=== PATIENT | female | born 1945 | race Caucasian/White ===

== ENCOUNTER 2023-05-18 10:23 | Inpatient (IN) | payer BC, MEDICAID ==
[~2023-05-18] VITALS: Ht 154.9 cm; Wt 68.9 kg
[~2023-05-18 10:23] MED LIST: ASPI-1077 PO; CHOL200059 PO; Ferrous Sulfate PO; GLIP10TA21 PO; HYDR100T25 PO; LIP40 PO; LISI40TA13 PO; METF1000 PO; METO50TA16 PO; SITA50TA3 PO
[2023-05-18 10:34] VITALS: BP_SYST 168; PULSE 73; RESP 18; TEMP 98.3; O2SAT 95
[2023-05-18 11:15] LABS: BASOPHILS # (AUTO) 0.1 K/uL (0.0-0.2); BASOPHILS % (AUTO) 0.5 % (0.0-2.0); EOSINOPHILS # (AUTO) 0.1 K/uL (0.0-0.4); EOSINOPHILS % (AUTO) 0.5 % (0.0-4.0); HEMATOCRIT 26.4 % (36-48); LYMPHOCYTES # (AUTO) 0.9 K/uL (1.0-5.5); LYMPHOCYTES % (AUTO) 5.3 % (20.5-51.5); MEAN CORPUSCULAR HEMOGLOBIN 21 pg (27-31); MEAN CORPUSCULAR HGB CONC 30 % (32-36); MEAN CORPUSCULAR VOLUME 70 fL (79.0-98.0); MONOCYTES # (AUTO) 1.2 K/uL (0.0-1.0); MONOCYTES % (AUTO) 7.6 % (1.7-9.3); NEUTROPHILS # (AUTO) 13.9 K/uL (1.8-7.7); NEUTROPHILS % (AUTO) 86.1 % (40.0-70.0); PLATELET COUNT (AUTO) 501 K/uL (130-430); RED CELL DISTRIBUTION WIDTH 18.6 % (9.0-15.0); WHITE BLOOD COUNT (AUTO) 16.2 K/uL (4.8-10.8)
[2023-05-18 11:27] LABS: ANION GAP 8 (5-15); CALCIUM 9.6 mg/dL (8.4-11.0); CARBON DIOXIDE 25 mmol/L (23-29); CHLORIDE 99 mmol/L (98-107); CREATININE 0.65 mg/dL (0.55-1.30); GLUCOSE 163 mg/dL (74-106); POTASSIUM 3.9 mmol/L (3.5-5.1); SODIUM SERUM 132 mmol/L (136-145); UREA NITROGEN, BLOOD 12 mg/dL (8-21)
[2023-05-18 11:33] LABS: ALANINE AMINOTRANSFERASE 40 U/L (12-78); ALBUMIN 2.1 g/dL (3.4-4.8); ASPARTATE AMINOTRANSFERASE 60 U/L (10-37); BILIRUBIN,DIRECT 0.3 mg/dL (0.0-0.3); TOTAL BILIRUBIN 0.5 mg/dL (0.0-1.0); TOTAL PROTEIN, SERUM 6.9 g/dL (6.4-8.3)
[2023-05-18] MEDS: FUROSEMIDE 40 MG/4 ML VIAL IVP ONE (15:17)
[2023-05-18] MEDS ORDERED: cefTRIAXone 1 GM VIAL ONE (15:29)
[2023-05-18] MEDS: cefTRIAXone 1 GM in D5W 50 ML IV SCH (15:45)
[2023-05-18] MEDS ORDERED: cefTRIAXone 1 GM IVPB PREMIX 50 ML IV ONE (18:09)
[2023-05-18] MEDS: FUROSEMIDE 40 MG/4 ML VIAL IVP SCH (22:17)
[2023-05-19 05:27] LABS: BASOPHILS # (AUTO) 0.2 K/uL (0.0-0.2); BASOPHILS % (AUTO) 1.3 % (0.0-2.0); EOSINOPHILS # (AUTO) 0.2 K/uL (0.0-0.4); EOSINOPHILS % (AUTO) 1.3 % (0.0-4.0); HEMATOCRIT 24.6 % (36-48); HEMOGLOBIN 7.5 g/dL (12.0-16.0); LYMPHOCYTES # (AUTO) 1.3 K/uL (1.0-5.5); LYMPHOCYTES % (AUTO) 9.5 % (20.5-51.5); MEAN CORPUSCULAR HEMOGLOBIN 21 pg (27-31); MEAN CORPUSCULAR HGB CONC 31 % (32-36); MEAN CORPUSCULAR VOLUME 69 fL (79.0-98.0); MONOCYTES # (AUTO) 1.4 K/uL (0.0-1.0); MONOCYTES % (AUTO) 9.8 % (1.7-9.3); NEUTROPHILS % (AUTO) 78.1 % (40.0-70.0); PLATELET COUNT (AUTO) 434 K/uL (130-430); RED BLOOD CELL COUNT(AUTO) 3.55 MIL/uL (4.2-6.2); RED CELL DISTRIBUTION WIDTH 18.6 % (9.0-15.0); WHITE BLOOD COUNT (AUTO) 14.1 K/uL (4.8-10.8)
[2023-05-19 05:49] LABS: ANION GAP 9 (5-15); CALCIUM 9.3 mg/dL (8.4-11.0); CARBON DIOXIDE 27 mmol/L (23-29); CHLORIDE 97 mmol/L (98-107); CREATININE 0.67 mg/dL (0.55-1.30); GLUCOSE 192 mg/dL (74-106); POTASSIUM 3.4 mmol/L (3.5-5.1); SODIUM SERUM 133 mmol/L (136-145); UREA NITROGEN, BLOOD 13 mg/dL (8-21)
[2023-05-19 07:07] VITALS: BP_SYST 150; PULSE 74; RESP 18; TEMP 98.3
[2023-05-19 07:52] VITALS: O2SAT 94
[2023-05-19 08:00] VITALS: BP_SYST 153; PULSE 71; RESP 18; TEMP 97.9; O2SAT 97
[2023-05-19] MEDS: ASPIRIN 81 MG TAB.CHEW PO SCH (08:38)
[2023-05-19 11:31] VITALS: BP_SYST 154; PULSE 72; RESP 17; TEMP 97.6; O2SAT 97
[2023-05-19 16:14] VITALS: BP_SYST 150; PULSE 70; RESP 18; TEMP 97.8; O2SAT 96
[2023-05-19] MEDS: glipiZIDE XL 5 MG TAB ( GLUCOTROL XL) PO ONE (18:18)
[2023-05-19 20:00] VITALS: BP_SYST 140; PULSE 81; RESP 17; TEMP 97.7; O2SAT 97; O2SAT 98
[2023-05-19] MEDS: CEFTRIAXONE SOD 1 GM/ D5W 50 ML IV SCH (21:00)
[2023-05-19] MEDS: metFORMIN HCL 500 MG TABLET PO SCH (21:39)
[2023-05-20] VITALS: BP_SYST 153; PULSE 92; RESP 17; TEMP 99.4; O2SAT 96
[2023-05-20] MEDS: glipiZIDE XL 5 MG TAB ( GLUCOTROL XL) PO SCH (06:13)
[2023-05-20 14:22] LABS: THYROID STIMULATING HORMONE 0.97 uIu/mL (0.34-4.82)
[2023-05-20] MEDS: BUMEX 1 MG/4 ML VIAL IVP ONE (16:19)
[2023-05-20] MEDS: metOLazone 5 MG TABLET PO ONE (16:19)
[2023-05-20 19:45] VITALS: O2SAT 97
[2023-05-20 20:23] VITALS: BP_SYST 138; PULSE 74; RESP 16; TEMP 98.8; O2SAT 97
[2023-05-21 00:33] VITALS: BP_SYST 155; PULSE 77; RESP 16; TEMP 97.5; O2SAT 97
[2023-05-21 05:03] LABS: BASOPHILS # (AUTO) 0.1 K/uL (0.0-0.2); BASOPHILS % (AUTO) 0.3 % (0.0-2.0); EOSINOPHILS # (AUTO) 0.1 K/uL (0.0-0.4); EOSINOPHILS % (AUTO) 0.5 % (0.0-4.0); HEMATOCRIT 24.1 % (36-48); HEMOGLOBIN 7.6 g/dL (12.0-16.0); LYMPHOCYTES # (AUTO) 1.3 K/uL (1.0-5.5); LYMPHOCYTES % (AUTO) 6.9 % (20.5-51.5); MEAN CORPUSCULAR HEMOGLOBIN 22 pg (27-31); MEAN CORPUSCULAR HGB CONC 32 % (32-36); MEAN CORPUSCULAR VOLUME 69 fL (79.0-98.0); MONOCYTES # (AUTO) 2.2 K/uL (0.0-1.0); MONOCYTES % (AUTO) 11.7 % (1.7-9.3); NEUTROPHILS % (AUTO) 80.6 % (40.0-70.0); PLATELET COUNT (AUTO) 395 K/uL (130-430); RED BLOOD CELL COUNT(AUTO) 3.47 MIL/uL (4.2-6.2); WHITE BLOOD COUNT (AUTO) 18.6 K/uL (4.8-10.8)
[2023-05-21] MEDS: glipiZIDE XL 5 MG TAB ( GLUCOTROL XL) PO SCH (06:23)
[2023-05-21 07:02] LABS: ANION GAP 9 (5-15); CALCIUM 8.6 mg/dL (8.4-11.0); CARBON DIOXIDE 30 mmol/L (23-29); CHLORIDE 95 mmol/L (98-107); CREATININE 0.59 mg/dL (0.55-1.30); GLUCOSE 54 mg/dL (74-106); SODIUM SERUM 134 mmol/L (136-145); UREA NITROGEN, BLOOD 15 mg/dL (8-21)
[2023-05-21 07:15] LABS: POTASSIUM 2.6 mmol/L (3.5-5.1)
[2023-05-21 08:00] VITALS: BP_SYST 132; PULSE 72; RESP 16; TEMP 98.2; O2SAT 97
[2023-05-21] MEDS ORDERED: POTASSIUM CHLORIDE 40 MEQ in NS 250 ML IV ONE (08:15)
[2023-05-21 08:30] VITALS: O2SAT 97
[2023-05-21] MEDS: POTASSIUM CHLORIDE 20 MEQ TABLET.ER PO SCH (09:50)
[2023-05-21] MEDS: metOLazone 5 MG TABLET PO SCH (09:51)
[2023-05-21] MEDS: LOSARTAN POTASSIUM 25 MG TABLET PO ONE (09:52)
[2023-05-21] MEDS: POTASSIUM CHLORIDE 40 MEQ, LIDOCAINE JECT 2% PF 100 MG 75 MG in NS 250 ML IV ONE (10:05)
[2023-05-21 10:12] LABS: BILIRUBIN,DIRECT 0.3 mg/dL (0.0-0.3); TOTAL BILIRUBIN 0.5 mg/dL (0.0-1.0); TOTAL PROTEIN, SERUM 6.8 g/dL (6.4-8.3)
[2023-05-21 11:30] LABS: BILIRUBIN,URINE NEGATIVE (NEGATIVE); BLOOD, URINE NEGATIVE (NEGATIVE); CLARITY/URINE CLEAR (CLEAR); COLOR,URINE YELLOW (YELLOW); GLUCOSE,URINE NEGATIVE (NEGATIVE); KETONES,URINE NEGATIVE (NEGATIVE); LEUKOCYTE ESTERASE ,URINE 1+ (NEGATIVE); NITRITE, URINE NEGATIVE (NEGATIVE); PROTEIN URINE NEGATIVE (NEGATIVE); UROBILINOGEN,URINE 0.2 (0.2-1.0)
[2023-05-21 11:45] LABS: BACTERIA,URINE FEW /HPF (None Seen); MUCUS,URINE 1+ /LPF (None Seen); RBC,URINE 0-3 /HPF (0-3)
[2023-05-21] MEDS ORDERED: VANCOMYCIN HCL 750 MG in NS 250 ML IV SCH (12:00)
[2023-05-21 13:48] LABS: BASOPHILS # (AUTO) 0.1 K/uL (0.0-0.2); BASOPHILS % (AUTO) 0.4 % (0.0-2.0); EOSINOPHILS % (AUTO) 0.3 % (0.0-4.0); HEMATOCRIT 25.4 % (36-48); HEMOGLOBIN 8.1 g/dL (12.0-16.0); LYMPHOCYTES % (AUTO) 6.3 % (20.5-51.5); MEAN CORPUSCULAR HEMOGLOBIN 22 pg (27-31); MEAN CORPUSCULAR HGB CONC 32 % (32-36); MEAN CORPUSCULAR VOLUME 70 fL (79.0-98.0); MONOCYTES # (AUTO) 1.7 K/uL (0.0-1.0); MONOCYTES % (AUTO) 10.6 % (1.7-9.3); NEUTROPHILS # (AUTO) 13.1 K/uL (1.8-7.7); NEUTROPHILS % (AUTO) 82.4 % (40.0-70.0); PLATELET COUNT (AUTO) 416 K/uL (130-430); RED BLOOD CELL COUNT(AUTO) 3.66 MIL/uL (4.2-6.2); RED CELL DISTRIBUTION WIDTH 18.8 % (9.0-15.0); WHITE BLOOD COUNT (AUTO) 15.9 K/uL (4.8-10.8)
[2023-05-21] MEDS ORDERED: PIPERACILLIN/TAZO 4.5GM/DEX-IS 100 ML IV SCH (14:00)
[2023-05-21] MEDS: ceFAZolin SODIUM 2 GM in D5W 100 ML IV SCH (15:47)
[2023-05-21] MEDS: FLUCONAZOLE 200 mg/ NS 100 ML IV SCH (15:47)
[2023-05-21 19:00] VITALS: BP_SYST 170; PULSE 87; RESP 18; TEMP 98.7; O2SAT 98
[2023-05-21 20:18] VITALS: BP_SYST 170; PULSE 87; RESP 18; TEMP 98.7; O2SAT 99
[2023-05-21] MEDS: LOSARTAN POTASSIUM 25 MG TABLET PO SCH (20:48)
[2023-05-22] VITALS (7 sets, daily range): BP systolic 125–158; PULSE 81–98; RESP 16–18; TEMP 97.3–98.2; O2SAT 97–99
[2023-05-22 06:02] LABS: ANION GAP 6 (5-15); CALCIUM 9.2 mg/dL (8.4-11.0); CARBON DIOXIDE 33 mmol/L (23-29); CHLORIDE 96 mmol/L (98-107); CREATININE 0.53 mg/dL (0.55-1.30); POTASSIUM 3.2 mmol/L (3.5-5.1); SODIUM SERUM 135 mmol/L (136-145); UREA NITROGEN, BLOOD 18 mg/dL (8-21)
[2023-05-22 06:05] LABS: BASOPHILS % (AUTO) 0.2 % (0.0-2.0); EOSINOPHILS # (AUTO) 0.1 K/uL (0.0-0.4); EOSINOPHILS % (AUTO) 0.5 % (0.0-4.0); HEMATOCRIT 24.2 % (36-48); HEMOGLOBIN 7.6 g/dL (12.0-16.0); LYMPHOCYTES # (AUTO) 1.2 K/uL (1.0-5.5); LYMPHOCYTES % (AUTO) 7.7 % (20.5-51.5); MEAN CORPUSCULAR HEMOGLOBIN 22 pg (27-31); MEAN CORPUSCULAR HGB CONC 32 % (32-36); MEAN CORPUSCULAR VOLUME 69 fL (79.0-98.0); MONOCYTES # (AUTO) 1.7 K/uL (0.0-1.0); MONOCYTES % (AUTO) 10.9 % (1.7-9.3); NEUTROPHILS # (AUTO) 12.8 K/uL (1.8-7.7); NEUTROPHILS % (AUTO) 80.7 % (40.0-70.0); PLATELET COUNT (AUTO) 413 K/uL (130-430); RED BLOOD CELL COUNT(AUTO) 3.48 MIL/uL (4.2-6.2); RED CELL DISTRIBUTION WIDTH 19.3 % (9.0-15.0); WHITE BLOOD COUNT (AUTO) 15.8 K/uL (4.8-10.8)
[2023-05-22 06:13] LABS: GLUCOSE 48 mg/dL (74-106)
[2023-05-22 08:06] LABS: CREATININE, URINE 41.8 mg/dL (Not Estab.); MICROALBUMIN URINE RANDOM 48.1 ug/mL (Not Estab.)
[2023-05-22] MEDS: POTASSIUM CHLORIDE 20 MEQ/PKT PACKET PO ONE (12:59)
[2023-05-22] MEDS: FUROSEMIDE 40 MG TABLET PO SCH (18:21)
[2023-05-22] MEDS: SPIRONOLACTONE 25 MG TABLET (ALDACTONE) PO SCH (20:17)
[2023-05-23 01:26] VITALS: BP_SYST 140; PULSE 71; RESP 18; TEMP 98.4; O2SAT 99
[2023-05-23 07:41] LABS: BASOPHILS # (AUTO) 0.1 K/uL (0.0-0.2); EOSINOPHILS # (AUTO) 0.3 K/uL (0.0-0.4); EOSINOPHILS % (AUTO) 2.7 % (0.0-4.0); HEMATOCRIT 24.3 % (36-48); HEMOGLOBIN 7.8 g/dL (12.0-16.0); LYMPHOCYTES # (AUTO) 1.3 K/uL (1.0-5.5); LYMPHOCYTES % (AUTO) 11.9 % (20.5-51.5); MEAN CORPUSCULAR HEMOGLOBIN 22 pg (27-31); MEAN CORPUSCULAR HGB CONC 32 % (32-36); MEAN CORPUSCULAR VOLUME 69 fL (79.0-98.0); MONOCYTES # (AUTO) 1.3 K/uL (0.0-1.0); MONOCYTES % (AUTO) 11.7 % (1.7-9.3); NEUTROPHILS # (AUTO) 7.9 K/uL (1.8-7.7); NEUTROPHILS % (AUTO) 72.7 % (40.0-70.0); PLATELET COUNT (AUTO) 427 K/uL (130-430); RED BLOOD CELL COUNT(AUTO) 3.51 MIL/uL (4.2-6.2); RED CELL DISTRIBUTION WIDTH 19.1 % (9.0-15.0); WHITE BLOOD COUNT (AUTO) 10.9 K/uL (4.8-10.8)
[2023-05-23 07:48] VITALS: BP_SYST 140; PULSE 70; RESP 18; TEMP 97.3; O2SAT 97
[2023-05-23 07:50] LABS: TOTAL IRON BIND. CAPACITY 205 ug/dL (250-450)
[2023-05-23 07:54] LABS: ANION GAP 9 (5-15); CALCIUM 9.2 mg/dL (8.4-11.0); CARBON DIOXIDE 29 mmol/L (23-29); CHLORIDE 94 mmol/L (98-107); CREATININE 0.74 mg/dL (0.55-1.30); GLUCOSE 179 mg/dL (74-106); POTASSIUM 3.2 mmol/L (3.5-5.1); SODIUM SERUM 132 mmol/L (136-145); UREA NITROGEN, BLOOD 18 mg/dL (8-21)
[2023-05-23] MEDS ORDERED: AMOX-423 PO (10:03)
[2023-05-23] MEDS ORDERED: DIF100 PO (10:04)
[2023-05-23] MEDS ORDERED: FURO-149 PO (10:05)
[2023-05-23 11:17] VITALS: O2SAT 98
[2023-05-23 12:20] VITALS: BP_SYST 130; PULSE 81; RESP 16; TEMP 97.7; O2SAT 98
[2023-05-23 12:33] VITALS: BP_SYST 130; PULSE 81; RESP 16; TEMP 97.7; O2SAT 98
[2023-05-26 01:06] LABS: FERRITIN 1385 ng/mL (15-150)
[2023-05-26 04:06] LABS: FOLATE (FOLIC ACID) >20.0 ng/mL (>3.0)
[2023-05-26 05:07] LABS: CA 27.29 34.9 U/mL (0.0-38.6)
== END 2023-05-23 15:30 | disposition home health service (06) | DRG 374 ==
LOC: SED 10:23 → SMU 14:08
PROVIDERS: ADMIT Specialist; ATTEND Specialist
DX: C18.9 Malignant neoplasm of colon, unspecified (principal); I50.33 Acute on chronic diastolic (congestive) heart failure; L03.115 Cellulitis of right lower limb; L03.116 Cellulitis of left lower limb; C78.7 Secondary malignant neoplasm of liver and intrahepatic bile duct; C78.00 Secondary malignant neoplasm of unspecified lung; I11.0 Hypertensive heart disease with heart failure; E78.5 Hyperlipidemia, unspecified; D50.9 Iron deficiency anemia, unspecified; E88.09 Other disorders of plasma-protein metabolism, not elsewhere classified; Z88.8 Allergy status to other drugs, medicaments and biological substances; Z79.899 Other long term (current) drug therapy; Z90.710 Acquired absence of both cervix and uterus
CPT/HCPCS: 36415; 71045; 71250-TC; 76376; 76700; 76770; 80048; 80061; 80076; 81000; 81001; 81015; 82043; 82378; 82570; 82607; 82728; 82746; 82962; 83540; 83550; 83880; 84443; 84484; 85025; 85044; 86300; 86301; 86304; 87040; 87081; 93005; 93306; 93970; 96365; 96375; 99285; J0696; J1450; J1940; J2543; J3480; J3490; J7050; J7060; Q9967

== ENCOUNTER 2023-05-27 08:17 | Day surgery (SDC) | payer BC ==
[~2023-05-27] VITALS: Ht 154.9 cm; Wt 61.2 kg
[~2023-05-27 08:17] MED LIST changes: +AMOX-423 PO; +DIF100 PO; +FURO-149 PO
[2023-05-27 11:10] VITALS: O2SAT 98
[2023-05-27] MEDS ORDERED: MIDAZOLAM HCL 5 MG/5 ML VIAL ONE (11:25)
[2023-05-27] MEDS ORDERED: fentaNYL CITRATE/PF 100 MCG/2 ML AMP ONE (11:25)
[2023-05-27 19:32] VITALS: BP_SYST 131; PULSE 67; RESP 17
== END 2023-05-27 13:25 | disposition home or self-care (01) ==
LOC: SDS 08:17 → SMU 08:31 → SDS 13:25
PROVIDERS: ATTEND Internal Medicine
DX: Z12.11 Encounter for screening for malignant neoplasm of colon (principal); K63.89 Other specified diseases of intestine; D12.0 Benign neoplasm of cecum; K57.30 Diverticulosis of large intestine without perforation or abscess without bleeding; K64.8 Other hemorrhoids; Z79.899 Other long term (current) drug therapy
CPT/HCPCS: 45380; 45381; 82962; 88305; 99152; G0378; J2250; J3010